=== PATIENT | male | born 1980 | race Caucasian/White ===

== ENCOUNTER 2020-01-13 17:09 | Outpatient (REF) | payer SELFPAY | END 2020-01-13 17:10 | disposition home or self-care (01) | LOC: HO.LAB 17:09 | PROVIDERS: Visit Provider Internal Medicine | DX: Z20.828 Contact with and (suspected) exposure to other viral communicable diseases (principal) | CPT/HCPCS: C9803; U0003 ==

== ENCOUNTER 2023-03-21 08:17 | Outpatient (AMB) | payer OTHER, SELFPAY ==
--- NOTE | 2023-03-21 08:47 | MHC.OFFWIV ---
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 Do you need a note to return to daycare/school/sports/work: Yes (return to work Saturday ) Return to daycare/school/sports/work/other note: work HPI HPI Comments History of Present Illness Details 42 y/o male patient who presents to walk in clinic with c/o left eye injury at work. Reports that a piece of plastic hit his eye. Denies vision changes. Denies eye pain. Denies N/V or Headaches. Physical Exam Vital Signs: Last Vital Signs Temp 98.0 F 03/21/23 08:48 Pulse 75 03/21/23 08:48 BP 110/80 03/21/23 08:48 Pulse Ox 96 03/21/23 08:48 Oxygen Delivery Method Room Air 03/21/23 08:48 HEENT Head: Yes normocephalic Ears: external ears normal and TM's normal bilaterally General nose exam: Normal nares present Face and sinus: Yes sinuses nontender Throat: Yes posterior oropharynx normal Eyes Alignment and Position: position normal Eyelids: Yes eyelids normal Conjunctivae: conjunctival abnormal left (Redness) conjunctival injection Sclerae: scleral abnormal Pupils: Equal, round and reactive pupils present EOM: EOMs intact bilaterally Resp Effort & Inspection: normal respiratory effort Neuro Cranial nerves: Yes Equal, round and reactive pupils present Assessment & Plan Assessment & Plan (1) Acute atopic conjunctivitis of left eye: Code(s): H10.12 - Acute atopic conjunctivitis, left eye Plan: - Wash eyes with warm water, no soap. - Wear [employer] at work. - Abx as prescribed. Medications: New ciprofloxacin HCl 0.3% Instill 1 to 2 drops into the conjunctival sac every 2 hours while awake for 2 days and 1 to 2 drops every 4 hours while awake for the next 5 days. 10 mL 0RF H10.12 - Acute atopic conjunctivitis, left eye Coding Level of Care Code Est Pt Level 2 (74918) Diagnoses Acute atopic conjunctivitis of left eye H10.12 Time Spent (min) 10
[2023-03-21 08:48] VITALS: BP 110/80; PULSE 75; TEMP 36.7; O2SAT 96
== END 2023-03-21 11:11 | disposition home or self-care (01) ==
PROVIDERS: Visit Provider Nurse Practitioner Family
DX: H10.12 Acute atopic conjunctivitis, left eye (principal); Z04.2 Encounter for examination and observation following work accident
CPT/HCPCS: 99213